=== PATIENT | male | born 1955 | race Hispanic/Latino ===

== ENCOUNTER 2021-11-18 22:36 | Emergency (ER) | payer BC ==
--- OUTSIDE RECORDS SUMMARY | 2021-11-18 22:39 | XMS REPORT | Continuity of Care Document ---
:1955 Author Organization [facility] t Address [address] [place] [address] Care Team Providers Name Role Phone Earnest BAIRES, Olegario Kaba Attending Clinician SHABBIR BLACKWOOD Attending Clinician Unavailable Payers Payer Name Policy Type Policy Number Effective Date Expiration Date S ource Problems This patient has no known problems. Allergies, Adverse Reactions, Alerts This patient has no known allergies or adverse reactions. Social History Social Habit Start Date Stop Date Quantity Comments Source Tobacco use and 2021-10-23 2021-10-23 Smokeless tobacco [facility] exposure 00:00:00 00:00:00 non-user of Medicine Alcohol intake 2021-10-23 2021-10-23 Current drinker [facility] 00:00:00 00:00:00 of alcohol of Medicine (finding) Exposure to 2021-10-12 2021-10-22 Not sure [facility] SARS-CoV-2 00:00:00 16:25:00 of Medicine (event) Sex [birth year] [facility] [employer] 00:00:00 00:00:00 of Medicine Smoking Status Start Date Stop Date Source Never smoked tobacco [facility] of Medicine Medications Ordered Filled Start Stop Current Ordering Indication Dosage Frequency Signature Comments Components Source Medication Medication Date Date Medication? Clinician (SIG) Name Name sildenafil Yes Take 1 tab [facility] [place] citrate 7-11 by mouth [place] (VIAGRA) 00:00: 30 minutes of 100 MG 00 prior to Medicin tablet intercours e e daily PRN tadalafil Yes 5mg Take 1 [facility] (CIALIS) 5 7-11 Tablet by [facility]il [facility] MG tablet 00:00: mouth of 00 daily. Medicin e Vital Signs Vital Name Observation Time Observation Value Comments Source Systolic blood 2021-10-23 19:45:00 98 mm[Hg] [facility] pressure Medicine Diastolic blood 2021-10-23 19:45:00 67 mm[Hg] [facility] Medicine Heart rate 2021-10-23 19:45:00 83 /min [facility] Body height 2021-10-23 19:45:00 180.3 cm [facility] Body weight 2021-10-23 19:45:00 79.379 kg [facility] BMI 2021-10-23 19:45:00 24.41 kg/m2 [facility] Procedures This patient has no known procedures. Plan of Care Planned Activity Planned Date Details Comments Source Future Scheduled 2021-11-06 PROLACTIN(URO DEPT) Expected: [facility] [employer] Test 00:00:00 [code = 2842-3] 11/06/2021 of Medicine (Approximate), Expires: 11/22/2021 Future Scheduled 2021-11-06 SENSITIVE Expected: [facility] Test 00:00:00 ESTRADIOL,MALE(URO 11/06/2021 of Medici ne DEPT) [code = (Approximate), 2243-4] Expires: 11/22/2021 Future Scheduled 2021-11-06 TESTOSTERONE-TOTAL(U Expected: [facility] Test 00:00:00 RO DEPT) [code = 11/06/2021 of Medicine 2986-8] (Approximate), Expires: 11/22/2021 Future Scheduled 2021-10-23 Screening for [facility] Test 16:50:41 malignant neoplasm of Medici ne of colon (procedure) [code = 301326420] Future Scheduled 2021-10-23 COVID-19 Vaccine [facility] Test 16:50:41 (#1) [code = of Medicine COVID-19 Vaccine (#1)] Future Scheduled 2021-10-23 TETANUS SHOT (ADULT) [facility] Test 16:50:41 [code = TETANUS SHOT of Medi cine (ADULT)] Future Scheduled 2021-10-23 Hepatitis C [facility] Test 16:50:41 screening of Medicine (procedure) [code = 860647567] Future Scheduled 2021-10-23 ZOSTER VACCINE (1 of [place] [employer] Test 16:50:41 2) [code = ZOSTER of Medicin e VACCINE (1 of 2)] Future Scheduled 2021-10-23 FALL SCREEN [code = [employer] Test 16:50:41 FALL SCREEN] of Medicine Future Scheduled 2021-10-23 Pneumococcal 65+ (1 [employer] Test 16:50:41 - PCV) [code = of Medicine Pneumococcal 65+ (1 - PCV)] Future Scheduled 2021-10-23 FLU VACCINE > 6 [facility] Test 16:50:41 MONTHS [code = FLU of Medici ne VACCINE > 6 MONTHS] Future Scheduled 2021-10-23 US PENILE DUPLEX 1 Occurrences [facility] Test 16:34:14 [code = 68036] starting of Medicine 10/23/2021 until 10/23/2022 Future Scheduled 2021-10-23 LIPID PANEL [code = Ordered: [employer] Test 16:15:32 86776-3] 10/23/2021 of Medicine Future Scheduled 2021-10-23 HEMATOCRIT [code = Ordered: [employer] [employer] Test 16:15:32 4544-3] 10/23/2021 of Medicine Encounters Start End Encounter Admission Attending Care Care Encounter Source Date/Time Date/Time Type Type Clinicians Facility Department ID 2021-05-12 Outpatient [facility] [id number] [facility] 05:04:27 [facility] 2021-01-29 Outpatient [facility] [id number] [facility] 09:14:14 [id number] [facility] [employer] 2021-10-23 2021-10-23 Office LEXUS Tinoco [id number] [facility] 14:10:00 16:49:09 Visit Olegario I AMBULATOR [id number] College Y [id number] of [id number] [facility]i [facility] 300 e 2021-01-10 2021-01-10 Outpatient SHABBIR BLACKWOOD [id number] Na[place] 13:15:00 13:15:00 Seybol d Results This patient has no known results.
--- NOTE | 2021-11-19 00:17 | ER ---
Nurse's Notes [facility] Name: Delonte Rivera Age: 66 yrs Sex: Male : 1955 Arrival Date: 11/18/2021 Time: 22:40 Bed 18 Private MD: Diagnosis: Streptococcal pharyngitis;Coronavirus infection, unspecified Presentation: 11/18 22:48 Chief complaint: Patient states: cough weakness began yesterday reports sore throat. Coronavirus screen: Vaccine status: Patient reports receiving the 2nd dose of the covid vaccine. Ebola Screen: Patient negative for fever greater than or equal to 101.5 degrees Fahrenheit, and additional compatible Ebola Virus Disease symptoms. Initial Sepsis Screen: Does the patient meet any 2 criteria? No. Patient's initial sepsis screen is negative. Does the patient have a suspected source of infection? No. Patient's initial sepsis screen is negative. Risk Assessment: Do you want to hurt yourself or someone else?. Onset of symptoms was November 17, 2021. 22:48 Method Of Arrival: Ambulatory 22:48 Acuity: WESLY 4 kl Triage Assessment: 22:50 General: Appears uncomfortable, well groomed, well developed, Behavior is calm, kl cooperative. Pain: Complains of pain in generalized body aches Pain currently is 5 out of 10 on a pain scale. Historical: - Allergies: 22:50 No Known Allergies; kl - Home Meds: 22:50 None [Active]; kl - PMHx: 22:50 None; kl - PSHx: 22:50 None; kl - Immunization history:: Adult Immunizations up to date. - Social history:: Smoking status: Patient denies any tobacco usage or history of. Screenin/07 00:37 Abuse screen: Denies threats or abuse. Denies injuries from another. Nutritional lg3 screening: No deficits noted. Tuberculosis screening: No symptoms or risk factors identified. Fall Risk None identified. Assessment: 00:37 General: Appears in no apparent distress. comfortable, Behavior is calm, cooperative. lg3 Pain: Complains of pain in head and back of head. Neuro: No deficits noted. Level of Consciousness is awake, alert, obeys commands, Oriented to person, place, time, situation. Cardiovascular: No deficits noted. Capillary refill < 3 seconds Clubbing of nail beds is absent JVD is absent Patient's skin is warm and dry. Respiratory: Reports cough that is persistent pain with cough Airway is patent Trachea midline Respiratory effort is even, unlabored, Respiratory pattern is regular, symmetrical, Breath sounds with crackles bilaterally. GI: No deficits noted. No signs and/or symptoms were reported involving the gastrointestinal system. Abdomen is flat, non-distended. : No deficits noted. No signs and/or symptoms were reported regarding the genitourinary system. EENT: No deficits noted. No signs and/or symptoms were reported regarding the EENT system. Derm: No deficits noted. No signs and/or symptoms reported regarding the dermatologic system. Skin is intact, is healthy with good turgor, Skin is dry, Skin temperature is warm. Musculoskeletal: No deficits noted. No signs and/or symptoms reported regarding the musculoskeletal system. Circulation, motion, and sensation intact. Range of motion: intact in all extremities, Reports generalized weakness. Vital Signs: 11/18 22:48 BP 111 / 65; Pulse 90; Resp 20; Temp 99(O); Pulse Ox 97% on R/A; Weight 80.74 kg (R); kl Height 5 ft. 11 in. (180.34 cm); Pain 5/10; 22:48 Body Mass Index 24.83 (80.74 kg, 180.34 cm) ED Course: 22:40 Patient arrived in ED. bp1 22:49 Triage completed. 22:52 Yanni Grigsby FNP-C is [facility]. kb 22:52 Bret Machado MD is Attending Physician. kb 22:55 COVID-19 SARS RT PCR (Document "Date of Onset" if Symptomatic) Sent. [facility] 22:55 Flu Sent. [facility] 22:55 Strep Sent. [facility] 22:56 COVID swab sent to lab. Flu and/or RSV swab sent to lab. Strep swab sent to lab. [facility] 23:02 Steph Keller, RN is Primary Nurse. lg3 11/19 00:37 No provider procedures requiring assistance completed. Patient did not have IV access lg3 during this emergency room visit. 00:37 Patient has correct armband on for positive identification. Bed in low position. Call lg3 light in reach. Side rails up X 1. Client placed on continuous cardiac and pulse oximetry monitoring. NIBP monitoring applied. Door closed. Noise minimized. Family accompanied patient. 00:40 Arm band placed on left wrist. lg3 Administered Medications: No medications were administered Medication: 00:37 VIS not applicable for this client. lg3 Outcome: 00:16 Discharge ordered by . marlen 00:37 Discharged to home ambulatory, with family. lg3 00:37 Condition: stable 00:37 Discharge instructions given to patient, Instructed on discharge instructions, follow up and referral plans. medication usage, Demonstrated understanding of instructions, follow-up care, medications, Prescriptions given X 1. 00:53 Patient left the ED. lg3 Signatures: Yanni Grigsby, BOWLING TEACHER-C BOWLING TEACHER-Desire Malave, RN Lisa Guillen 5 Steph Keller RN RN lg3 Nona Cadet bp1
--- NOTE | 2021-11-19 00:18 | EDPHYS ---
Physician Documentation [facility] Name: Delonte Rivera Age: 66 yrs Sex: Male : 1955 Arrival Date: 11/18/2021 Time: 22:40 Bed 18 Private MD: ED Physician Bret Machado HPI: 11/18 23:45 This 66 yrs old Male presents to ER via Ambulatory with complaints of Cough, kb Dizziness. 23:45 The patient or guardian reports cough, that is intermittent, described as mild, flu kb symptoms, myalgias. Onset: The symptoms/episode began/occurred yesterday. Severity of symptoms: At their worst the symptoms were mild, moderate, in the emergency department the symptoms are unchanged. Modifying factors: The symptoms are alleviated by nothing, the symptoms are aggravated by nothing. Associated signs and symptoms: Pertinent positives: sore throat, Pertinent negatives: chest pain, diarrhea, ear ache, fever, nausea, rhinorrhea, vomiting. The patient has not experienced similar symptoms in the past. The patient has not recently seen a physician. pt reports cough, sore throat and bodyaches since yesterday. Historical: - Allergies: 22:50 No Known Allergies; kl - Home Meds: 22:50 None [Active]; kl - PMHx: 22:50 None; kl - PSHx: 22:50 None; kl - Immunization history:: Adult Immunizations up to date. - Social history:: Smoking status: Patient denies any tobacco usage or history of. ROS: 23:45 Cardiovascular: Negative for chest pain, palpitations, and edema. kb 23:45 Constitutional: Positive for body aches. 23:45 ENT: Positive for sore throat. 23:45 Respiratory: Positive for cough. 23:45 All other systems are negative. Exam: 23:45 Constitutional: This is a well developed, well nourished patient who is awake, alert, kb and in no acute distress. Head/Face: Normocephalic, atraumatic. ENT: Moist Mucous membranes Cardiovascular: Regular rate and rhythm with a normal S1 and S2. No gallops, murmurs, or rubs. No pulse deficits. Respiratory: Respirations even and unlabored. No increased work of breathing. Talking in full sentences Skin: Warm, dry with normal turgor. Normal color. MS/ Extremity: Pulses equal, no cyanosis. Neurovascular intact. Full, normal range of motion. Neuro: Awake and alert, GCS 15, oriented to person, place, time, and situation. Moves all extremities. Normal gait. Psych: Awake, alert, with orientation to person, place and time. Behavior, mood, and affect are within normal limits. Vital Signs: 22:48 BP 111 / 65; Pulse 90; Resp 20; Temp 99(O); Pulse Ox 97% on R/A; Weight 80.74 kg (R); kl Height 5 ft. 11 in. (180.34 cm); Pain 5/10; 22:48 Body Mass Index 24.83 (80.74 kg, 180.34 cm) kl MDM: 22:52 Patient medically screened. kb 23:47 Data reviewed: vital signs, nurses notes. Data interpreted: Pulse oximetry: on room air kb is 97 %. Interpretation: normal. 11/19 00:16 Counseling: I had a detailed discussion with the patient and/or guardian regarding: the kb historical points, exam findings, and any diagnostic results supporting the discharge/admit diagnosis, lab results, the need for outpatient follow up, a family practitioner, to return to the emergency department if symptoms worsen or persist or if there are any questions or concerns that arise at home. 11/18 22:54 Order name: Strep; Complete Time: 23:47 kl 11/18 22:54 Order name: Flu; Complete Time: 23:47 kl 11/18 22:54 Order name: COVID-19 SARS RT PCR (Document "Date of Onset" if Symptomatic); Complete kl Time: 00:09 Administered Medications: No medications were administered Disposition: 06:19 Co-signature as Attending Physician, Bret Machado MD. [email or web address] Disposition Summary: 11/19/21 00:16 Discharge Ordered Location: Home kb Condition: Stable kb Diagnosis - Streptococcal pharyngitis kb - Coronavirus infection, unspecified kb Followup: kb - With: Emergency Department - When: As needed - Reason: Worsening of condition Followup: kb - With: Private Physician - When: 2 - 3 days - Reason: Recheck today's complaints, Continuance of care, Re-evaluation by your physician Discharge Instructions: - Discharge Summary Sheet kb - Strep Throat, Adult, [id number] kb - Viral Respiratory Infection, [id number] kb - COVID-19 kb Forms: - Medication Reconciliation Form kb - Thank You Letter kb - Antibiotic Education kb - Prescription Opioid Use kb Prescriptions: - Augmentin 875-125 mg Oral Tablet - take 1 tablet by ORAL route every 12 hours for 10 days; 20 tablet; Refills: 0, kb Product Selection Permitted Signatures: Dispatcher [employer] Yanni Rowland, Desire Saleem RN RN kl Holmes, Maurice, MD MD [email or web address]
[2021-11-19 01:31] VITALS: BP 111/65; TEMP 99; O2SAT 97
== END 2021-11-19 00:53 | disposition home or self-care (01) ==
LOC: ER 22:36
DX: U07.1 COVID-19 (principal); J02.0 Streptococcal pharyngitis
CPT/HCPCS: 87081; 87804 ×2; 99283; U0003

== ENCOUNTER → 2023-05-01 | Emergency (ER) | payer BC ==
[~2023-05-01] MED LIST: NA CHLORIDE 0.9% 1,000 ML ONE; ONDANSETRON 4 MG/2 ML VIAL ONE
--- OUTSIDE RECORDS SUMMARY | 2023-05-01 00:41 | XMS REPORT | Continuity of Care Document ---
Author Name Unknown Address [address] [facility] [address] th[address] Address [address] [facility] [address] [place] [address] Care Team Providers Care Senior Instrumentation Engineer Name Role Phone MANUEL MAGUIRE Attending Clinician Unavailable MD JUMA Attending Clinician Unavailab Hernandez Attending Clinician Unavailable DMITRIY Attending Clinician Unavailable ALDO FAJARDO Attending Clinician Unavailab SHABBIR Martinez Attending Clinician Unavailable Payers Payer Name Policy Type Policy Number Effective Date Expirati on Date Source BCBS 2 [id number] 2022 00:00:00 Social History Social Habit Start Date Stop Date Quantity Comments Source Gender identity Jannet Matos - External Sexual orientation Lew Matos - External History of Social function 2022-08-31 00:00:00 2022-08-31 00:00:00 Jameel Matos - External Tobacco use and exposure 2022-08-31 00:00:00 2022-08-31 00:00:00 Smokeless tobacco non-user Jameel Matos - External Alcohol intake 2022-08-31 00:00:00 2022-08-31 00:00:00 Current drinker of alcohol (finding) Jameel Matos - External Sex Assigned At 1955 00:00:00 1955 00:00:00 Jameel Matos - External Smoking Status Start Date Stop Date Source Never smoked tobacco Jameel Matos - External Medications Ordered Medication Name Filled Medication Name Start Date Stop Date Current Medication? Ordering Clinician Indication Dosage Frequency Signature (SIG) Comments Components Source Tamsulosin HCl 0.4 MG oral Capsule 06-16 00:00: 00 Yes .4mg Take 1 capsule (0.4 mg total) by mouth every night at bedtime Jameel stevens Tamsulosin HCl 0.4 MG oral Capsule 06-16 00:00: 00 Yes .4mg Take 1 capsule (0.4 mg total) by mouth every night at bedtime Jameel stevens Sildenafil Citrate (Viagra) 100 MG oral Tab 2019-04 00:00: 00 Yes 100mg QD Take 1 tablet (100 mg total) by mouth daily as needed for erectile dysfunctio n Jameel stevens Sildenafil Citrate (Viagra) 100 MG oral Tab 2019-04 00:00: 00 Yes 100mg QD Take 1 tablet (100 mg total) by mouth daily as needed for erectile dysfunctio n Jameel stevens Tadalafil (Cialis) 20 MG oral Tab 2019-04 00:00: 00 Yes 20mg QD Take 1 tablet (20 mg total) by mouth daily as needed for erectile dysfunctio n as directed Jameel stevens Tadalafil (Cialis) 20 MG oral Tab 2019-04 00:00: 00 Yes 20mg QD Take 1 tablet (20 mg total) by mouth daily as needed for erectile dysfunctio n as directed Jameel stevens Tadalafil 5 MG oral Tab 2019-04 00:00: 00 Yes 5mg QD Take 1 tablet (5 mg total) by mouth daily as needed for erectile dysfunctio n Jameel stevens Tadalafil 5 MG oral Tab 2019-04 00:00: 00 Yes [id number] 5mg QD Take 1 tablet (5 mg total) by mouth daily as needed for erectile dysfunctio n Jameel Whitea hilda Tadalafil 5 MG oral Tab 2019-04 00:00: 00 Yes 5mg QD Take 1 tablet (5 mg total) by mouth daily as needed for erectile dysfunctio n Jameel stevens Tadalafil 5 MG oral Tab 2019-04 00:00: 00 Yes [id number] 5mg QD Take 1 tablet (5 mg total) by mouth daily as needed for erectile dysfunctio n Jameel Seybold - Externa l Vital Signs Vital Name Observation Time Observation Value Comments S marlen Systolic blood pressure 2022-08-31 14:31:00 132 mm[Hg] Jameel Seybo ld - External Diastolic blood pressure 2022-08-31 14:31:00 77 mm[Hg] Jameel Seybo ld - External Heart rate 2022-08-31 14:31:00 51 /min Kelse y Seybold - External Body temperature 2022-08-31 14:31:00 36.5 [place] Jameel Seybold - External Respiratory rate 2022-08-31 14:31:00 20 /min Jameel Seybold - External Body height 2022-08-31 14:31:00 177.8 cm Jannet ey Seybold - External Body weight 2022-08-31 14:31:00 82.101 kg Jannet ey Seybold - External BMI 2022-08-31 14:31:00 25.97 kg/m2 Jannet ey Seybold - External Oxygen saturation in Arterial blood by Pulse oximetry 2022-08-31 14:31:00 100 /min Jameel Seybo ld - External Systolic blood pressure 2022-08-31 13:25:00 132 mm[Hg] Jameel Seybo ld - External Diastolic blood pressure 2022-08-31 13:25:00 77 mm[Hg] Jameel Seybo ld - External Heart rate 2022-08-31 13:25:00 51 /min Kelse y Seybold - External Body temperature 2022-08-31 13:25:00 36.5 [place] Jameel Seybold - External Respiratory rate 2022-08-31 13:25:00 22 /min Jameel Seybold - External Body height 2022-08-31 13:25:00 177.8 cm Jannet ey Seybold - External Body weight 2022-08-31 13:25:00 82.101 kg Jannet ey Seybold - External BMI 2022-08-31 13:25:00 25.97 kg/m2 Jannet ey Seybold - External Encounters Start Date/Time End Date/Time Encounter Type Admission Type Attending [facility] Care Department Encounter ID Source 2021-05-12 05:04:27 Outpatient [facility] [id number] [facility] 2021-01-29 09:14:14 Outpatient [facility] [id number] [facility] 2022-12-14 00:00:00 2022-12-14 00:00:00 Outpatient MAGUIREMANUEL JAMEEL JORGENSEN [id number] [facility] 2022-11-30 09:00:00 2022-11-30 09:00:00 Outpatient TEREZA MAGUIRESesar JORGENSEN [id number] Jameel [facility] 2022-10-03 08:45:00 2022-10-03 08:45:00 Outpatient JAMEEL JORGENSEN [id number] [facility] 2022-09-11 00:00:00 2022-09-11 00:00:00 Outpatient MD JAMEEL MACDONALD [id number] [facility] 2022-08-31 12:00:00 2022-08-31 12:00:00 Outpatient LAB91 JAMEEL JORGENSEN [id number] [facility] 2022-08-31 11:30:00 2022-08-31 11:30:00 Outpatient TRED91 JAMEEL [facility]ORGENSEN [id number] [facility] 2022-08-31 10:30:00 2022-08-31 10:30:00 Outpatient ALDO FAJARDO [id number] Jameel [facility] 2022-08-31 08:55:00 2022-08-31 08:55:00 Outpatient LAB91 JAMEEL JORGENSEN [id number] [facility] 2022-08-31 08:20:00 2022-08-31 08:20:00 Outpatient MANUEL MAGUIRE [id number] [facility] 2022-08-31 00:00:00 2022-08-31 00:00:00 Outpatient ALDO FAJARDO [id number] [facility] 2021-01-10 13:15:00 2021-01-10 13:15:00 Outpatient SHABBIR BLACKWOOD [id number] Jameel Matos
[2023-05-01 01:26] LABS: Absolute Lymphocytes (CBC) 1.2 K/uL (0.7-4.9); Hematocrit 40.1 % (39.6-49.0); Lymphocytes % 34.1 % (15.3-44.8); MCV 88.1 fL (80-100); MPV 8.6 fL (7.6-11.3); Platelets 187 thou/uL (152-406); RBC Red Blood Cell Count 4.55 M/uL (4.33-5.43)
[2023-05-01 01:49] LABS: Albumin 3.3 g/dL (3.4-5.0); Bilirubin Total 0.5 mg/dL (0.2-1.0); Potassium 3.9 mEq/L (3.5-5.1); Protein, Total 7.3 g/dL (6.4-8.2)
[2023-05-01 01:54] LABS: SARS-CoV-2 Antigen Rapid Res Positive (Negative)
--- NOTE | 2023-05-01 02:00 | EDPHYS ---
Physician Documentation [facility] Name: Delonte Rivera Age: 67 yrs Sex: Male : 1955 Arrival Date: 05/01/2023 Time: 00:38 Bed 19 Private MD: ED Physician Clayton Juan HPI: 05/01 01:05 This 67 yrs old Male presents to ER via Ambulatory with complaints of ec2 Shortness Of Breath, Cough, Congestion, Nausea. 01:05 Patient arrives today for cough and cold symptoms as well as nausea and vomiting. ec2 States has been having symptoms for approximately 4 days. Patient reports he is having URI signs and symptoms, states that he is having decreased appetite as well. Denies any significant medical problems, no history of lung pathology, non-smoker.. Historical: - Allergies: 00:59 No Known Allergies; jb4 - PMHx: 00:59 None; jb4 - PSHx: 00:59 None; jb4 - Immunization history:: Adult Immunizations up to date. - Social history:: Smoking status: Patient denies any tobacco usage or history of. ROS: 01:05 Constitutional: as per hpi ec2 Exam: 01:05 Constitutional: GEN: NAD Head: atraumatic Eyes: EOMI Ears: External ears are ec2 normal. CV: regular rate LUNGS: no respiratory distress, no wheezes, rales, or rhonchi ABD: non-distended SKIN: no evidence of rashes MSK: no evidence of trauma NEURO: moves all extremities equally Vital Signs: 00:57 BP 133 / 82; Pulse 74; Resp 16; Temp 97.8(O); Pulse Ox 99% on R/A; Weight 79.38 kg (R); jb4 Height 5 ft. 11 in. (R); Pain 0/10; 01:30 BP 116 / 76; Pulse 76; Resp 17; Pulse Ox 98% ; nw1 02:32 BP 118 / 77; Pulse 72; Resp 15; Pulse Ox 99% on R/A; nw1 00:57 Body Mass Index 24.41 (79.38 kg, 180.34 cm) jb4 00:57 Pain Scale: Adult jb4 [place] Coma Score: 01:32 Eye Response: spontaneous(4). Motor Response: obeys commands(6). Verbal Response: nw1 oriented(5). Total: 15. MDM: 00:45 Patient medically screened. ec2 01:05 Data reviewed: vital signs. ED course: Patient arrives today for evaluation of cough ec2 and cold symptoms. Examination remarkable for well-appearing nontoxic individual with reassuring vital signs. Will obtain lab work, chest x-ray, viral swabs. Considering viral infection, pneumonia, electrolyte disturbances. Will give patient crystalloid as well as Zofran.. 01:58 ED course: Metabolic profile shows appropriate electrolytes. Positive for COVID. Will ec2 discharge home with prescription for Paxlovid. Return precautions given. . 05/01 01:02 Order name: CBC with Diff; Complete Time: 01:41 ec2 05/01 01:02 Order name: CMP; Complete Time: :58 ec2 05/01 01:02 Order name: Influenza Screen (a \T\ B); Complete Time: 01:58 ec2 05/01 01:02 Order name: SARS RAPID; Complete Time: :58 ec2 05/01 01:02 Order name: CXR XRAY ec2 Administered Medications: :17 Drug: NS 0.9% IV 1000 ml IV at 1 bolus Per protocol; 1000 mL bolus Route: IV; Rate: 1 nw1 bolus; Site: right forearm; 01:32 Drug: Ondansetron IVP 4 mg IVP once; over 2 minutes Route: IVP; Site: right forearm; nw1 Disposition Summary: 05/01/23 01:59 Discharge Ordered Notes: Location: Home ec2 Condition: Stable ec2 Diagnosis - SARS-associated coronavirus as the cause of diseases classified elsewhere ec2 Followup: ec2 - With: Private Physician - When: - Reason: Recheck today's complaints Discharge Instructions: - Discharge Summary Sheet ec2 - COVID-19 ec2 Forms: - Medication Reconciliation Form ec2 - Thank You Letter ec2 - Antibiotic Education ec2 - Prescription Opioid Use ec2 - Patient Portal Instructions ec2 - Leadership Thank You Letter ec2 Prescriptions: - Paxlovid 300 mg (150 mg x 2)-100 mg Oral Tablet, Dose Pack - take 1 dose pack ORAL route per package directions; 1 unit; Refills: 0, Product ec2 Selection Permitted Signatures: Dispatcher [facility] Andrea Spear RN RN jb4 Clayton Juan MD MD ec2 Shania Slaughter, RN RN nw1
--- NOTE | 2023-05-01 02:00 | ER ---
Nurse's Notes [facility] Name: Delonte Rivera Age: 67 yrs Sex: Male : 1955 Arrival Date: 05/01/2023 Time: 00:38 Bed 19 Private MD: Diagnosis: SARS-associated coronavirus as the cause of diseases classified elsewhere Presentation: 05/01 00:57 Chief complaint: Patient states: I woke up vomiting and coughing and could not catch my jb4 breath. I have had a cough for the past week. Coronavirus screen: Client presents with at least one sign or symptom that may indicate coronavirus-19. Standard/surgical mask placed on the client. Provider contacted for isolation considerations. Ebola Screen: No symptoms or risks identified at this time. Initial Sepsis Screen: Does the patient meet any 2 criteria? No. Patient's initial sepsis screen is negative. Does the patient have a suspected source of infection? No. Patient's initial sepsis screen is negative. Risk Assessment: Do you want to hurt yourself or someone else? Patient reports no desire to harm self or others. Onset of symptoms was May 01, 2023. Transition of care: patient was not received from another setting of care. 00:57 Method Of Arrival: Ambulatory jb4 00:57 Acuity: WESLY 3 jb4 Historical: - Allergies: 00:59 No Known Allergies; jb4 - PMHx: 00:59 None; jb4 - PSHx: 00:59 None; jb4 - Immunization history:: Adult Immunizations up to date. - Social history:: Smoking status: Patient denies any tobacco usage or history of. Screenin:39 [facility] ED Fall Risk Assessment (Adult) History of falling in the last 3 months, nw1 including since admission No falls in past 3 months (0 pts) Confusion or Disorientation No (0 pts) Intoxicated or Sedated No (0 pts) Impaired Gait No (0 pts) Mobility Assist Device Used No (0 pt) Altered Elimination No (0 pt) Score/Fall Risk Level 0 - 2 = Low Risk Oriented to surroundings, Maintained a safe environment, Educated pt \T\ family on fall prevention, incl call for assistance when getting out of bed, Assessed \T\ reinforced patient's understanding of fall precautions, Provided non-skid footwear, Hourly rounding (assess needs \T\ fall precautionary measures) done. Abuse screen: Denies threats or abuse. Denies injuries from another. Nutritional screening: No deficits noted. Tuberculosis screening: No symptoms or risk factors identified. Assessment: 01:32 Reassessment: Pt states productive cough that results in nausea and SOB with cough. nw1 General: Appears uncomfortable, well groomed, Behavior is calm, cooperative, appropriate for age. Pain: Complains of pain in chest Pain does not radiate. Pain currently is 5 out of 10 on a pain scale. Quality of pain is described as with cough. Cardiovascular: Rhythm is regular. Respiratory: Reports pain with cough Airway is patent Respiratory effort is even, unlabored, Respiratory pattern is regular, symmetrical, Breath sounds are clear bilaterally. GI: Abdomen is non-distended, Reports nausea. : No deficits noted. No signs and/or symptoms were reported regarding the genitourinary system. EENT: No deficits noted. No signs and/or symptoms were reported regarding the EENT system. Derm: No deficits noted. No signs and/or symptoms reported regarding the dermatologic system. Musculoskeletal: No deficits noted. No signs and/or symptoms reported regarding the musculoskeletal system. Vital Signs: 00:57 BP 133 / 82; Pulse 74; Resp 16; Temp 97.8(O); Pulse Ox 99% on R/A; Weight 79.38 kg (R); jb4 Height 5 ft. 11 in. (R); Pain 0/10; 01:30 BP 116 / 76; Pulse 76; Resp 17; Pulse Ox 98% ; nw1 02:32 BP 118 / 77; Pulse 72; Resp 15; Pulse Ox 99% on R/A; nw1 00:57 Body Mass Index 24.41 (79.38 kg, 180.34 cm) jb4 00:57 Pain Scale: Adult jb4 [place] Coma Score: 01:32 Eye Response: spontaneous(4). Motor Response: obeys commands(6). Verbal Response: nw1 oriented(5). Total: 15. ED Course: 00:41 Patient arrived in ED. jj6 00:45 Clayton Juan MD is Attending Physician. ec2 00:59 Triage completed. jb4 00:59 Arm band placed on right wrist. jb4 01:05 Shania Slaughter RN is Primary Nurse. nw1 01:17 CXR XRAY In Process Unspecified. EDMS 01:28 No provider procedures requiring assistance completed. Inserted saline lock: 18 gauge nw1 in right forearm, using aseptic technique. Blood collected. 01:32 SARS RAPID Sent. nw1 01:32 Influenza Screen (a \T\ B) Sent. nw1 01:32 CMP Sent. nw1 01:32 CBC with Diff Sent. nw1 01:39 Patient has correct armband on for positive identification. Placed in gown. Bed in low nw1 position. Call light in reach. Side rails up X2. Adult w/ patient. Provided Education on: POC. Door closed. Warm blanket given. 02:32 IV discontinued, intact, bleeding controlled, No redness/swelling at site. Pressure nw1 dressing applied. Administered Medications: 01:17 Drug: NS 0.9% IV 1000 ml IV at 1 bolus Per protocol; 1000 mL bolus Route: IV; Rate: 1 nw1 bolus; Site: right forearm; 01:32 Drug: Ondansetron IVP 4 mg IVP once; over 2 minutes Route: IVP; Site: right forearm; nw1 Medication: 01:39 VIS not applicable for this client. nw1 Outcome: 01:59 Discharge ordered by . ec2 02:32 Discharged to home ambulatory, nw1 02:32 Condition: stable 02:32 Discharge instructions given to patient, Instructed on discharge instructions, follow up and referral plans. Demonstrated understanding of instructions, follow-up care, medications, Prescriptions given X 1, 02:33 Patient left the ED. nw1 Signatures: Dispatcher [employer] Andrea Spear, RN RN jb4 Kassandra Echeverria jj6 Clayton Juan MD MD ec2 Shania Slaughter, GIFTY RN nw1
[2023-05-01 05:16] VITALS: BP 118/77; TEMP 97.8; O2SAT 99
--- NOTE | 2023-05-02 11:02 | RAD REPORT ---
EXAM DESCRIPTION: RAD - Chest Single View - 05/01/2023 1:15 am CLINICAL HISTORY: SOB COMPARISON: None TECHNIQUE: Single AP view of the chest. FINDINGS: Lung volumes adequate. Cardiac silhouette is normal in size. No pneumothorax. No large pleural effusion. No focal consolidation. No acute bony finding. IMPRESSION: No evidence of acute cardiopulmonary disease. Electronically signed by: Leo Gipson MD 05/01/2023 01:32 AM DENTAL BILLING SPECIALIST Due to temporary technical issues with the PACS/Fluency reporting system, reports are being signed by the in house radiologist without review as a courtesy to ensure prompt reporting. The interpreting r adiologist is fully responsible for the content of the report.
== END ==
LOC: ER 00:38
DX: U07.1 COVID-19 (principal)
CPT/HCPCS: 85025; 36415; 80053; 87804 ×2; 71045; 87811; J2405; J7030